=== PATIENT | male | born 1975 | race Caucasian/White ===

== ENCOUNTER 2023-03-21 21:18 | Emergency (ER) | payer BC ==
--- NOTE | 2023-03-21 21:46 | ERPHSYRPT ---
- History of Present Illness Time Seen by Provider: 03/21/23 21:45 Source: patient Exam Limitations: no limitations Physician History: This is an obese 47-year-old white male who complains of right ankle pain outer aspect for approximately 1 week. The last 2 days it is getting worse. He did not suffer any acute injury to the area. Method of Injury: unknown Occurred: last week Quality: aching Severity of Pain-Max: mild (To moderate) Severity of Pain-Current: mild (To moderate) Lower Extremities Pain: ankle: right (Outer aspect) Modifying Factors: Improves With: movement Associated Symptoms: none Allergies/Adverse Reactions: morphine Allergy (Verified 03/21/23 21:45) Home Medications: Bupropion HCl Xl 150 mg [Wellbutrin XL 150 MG] 300 mg PO DAILY 03/21/23 [History] Semaglutide [Ozempic] 2 mg SQ WEEKLY 03/21/23 [History] Sertraline HCl 200 mg PO DAILY 03/21/23 [History] Travel Risk - International Travel Have you traveled outside of the country in past 3 weeks: No - Coronavirus Screening Are you exhibiting any of the following symptoms?: No Close contact with a COVID-19 positive Pt in past 14-21 Days: No - Review of Systems Constitutional: No Symptoms Eyes: No Symptoms Ears, Nose, & Throat: No Symptoms Respiratory: No Symptoms Cardiac: No Symptoms Abdominal/Gastrointestinal: No Symptoms Genitourinary Symptoms: No Symptoms Musculoskeletal: Joint Pain (Right ankle) Skin: No Symptoms Neurological: No Symptoms Psychological: No Symptoms Endocrine: No Symptoms Hematologic/Lymphatic: No Symptoms Immunological/Allergic: No Symptoms All Other Systems: Reviewed and Negative - Past Medical History Pertinent Past Medical History: Yes - Past Surgical History Past Surgical History: Yes - Nursing Vital Signs Nursing Vital Signs: Initial Vital Signs Temperature 98.4 F 03/21/23 21:50 Pulse Rate 100 H 03/21/23 21:50 Respiratory Rate 18 03/21/23 21:50 Blood Pressure 135/79 03/21/23 21:50 O2 Sat by Pulse Oximetry 94 L 03/21/23 21:50 Pain Scale Pain Intensity 7 - Physical Exam General Appearance: no apparent distress, alert, anxiety Eyes, Ears, Nose, Throat Exam: normal ENT inspection, moist mucous membranes Neck Exam: normal inspection, non-tender, supple, full range of motion Cardiovascular/Respiratory Exam: chest non-tender, no respiratory distress Gastrointestinal/Abdominal Exam: non-tender Back Exam: normal inspection, normal range of motion, No CVA tenderness, No vertebral tenderness Hips Exam: bilateral: non-tender, normal inspection, normal range of motion, no evidence of injury Legs Exam: bilateral leg: non-tender, normal inspection, normal range of motion, no evidence of injury Knees Exam: bilateral knee: non-tender, normal inspection, normal range of motion, no evidence of injury Ankle Exam: right ankle: bone tenderness (Lateral aspect), soft tissue tenderness (Lateral aspect), left ankle: non-tender, bilateral ankle: normal inspection, normal range of motion, no evidence of injury Foot Exam: bilateral foot: non-tender, normal inspection, normal range of motion, no evidence of injury Neuro/Tendon Exam: normal sensation, normal motor functions, normal tendon functions, responds to pain, no evidence tendon injury Mental Status Exam: alert, oriented x 3, cooperative Skin Exam: normal color, warm, dry SpO2 Interpretation: normal O2 Delivery: Room Air - Course Nursing assessment & vital signs reviewed: Yes Ordered Tests: Active Orders 24 hr Category Date Time Status Reji Bandage Application -[facility] STAT Care 03/21/23 22:34 Active ANKLE (3 VIEWS) Stat Exams 03/21/23 21:57 Taken Medication Summary Discontinued Medications Generic Name Dose Route Start Last Admin Trade Name Freq PRN Reason Stop Dose Admin Orphenadrine Citrate 100 mg 03/21/23 22:35 Orphenadrine Citrate 100 Mg Er Tab PO 03/21/23 22:36 STAT ONE Prednisone 20 mg 03/21/23 22:35 Prednisone 20 Mg Tablet PO 03/21/23 22:36 STAT ONE - Progress Progress: pain not gone completely, re-examined Progress Note: 03/21/23 22:24 I reviewed and interpreted the x-ray of the right ankle. There are chronic changes noted but no evidence of any acute fracture or dislocation. This patient's issue is 1 of low complexity. The level of medical complexity and the work-up performed is based on review of the patient's past medical history, review of the patient's medical history, review of the patient's medication list, review of the patient's drug allergy list, history of present illness and physical findings on examination. Patient's work-up includes x-ray of the right ankle. Patient will use ice pack to the area 3 times a day for the next [address] an Reji wrap on him. He can use Tylenol and ibuprofen for pain control. He can follow-up with outpatient [facility] orthopedic clinic for persistent symptoms. Medical Desision Making - Diagnostic Testing Radiological Interpretation: Interpreted by me - Risk of complications The pt has a mod risk of morbidity or mortality based on: Need for prescription drug management - Departure Departure Disposition: Home Clinical Impression: Right ankle pain Condition: Stable Critical Care Time: No Referrals: ADIN ORLANDO MD [Primary Care Provider] - Follow up/PCP as directed Additional Instructions: Weightbearing as tolerated. Take your medication as prescribed. Call your primary care provider tomorrow, 03/22/2023 or follow-up with [facility] orthopedic clinic in the next 2 to 3 days if symptoms have not significantly improved. The orthopedic clinic is a walk-in clinic and you do not need to have an appointment. It is open 8 AM to 10 AM Wednesday through Wednesday. Ice pack to area 3 times a day for the next 48 hours Prescriptions: Prednisone 10 mg [Deltasone 10 mg] 10 mg PO TID #12 tablet Orphenadrine Citrate 100 mg [Norflex 100 MG Tablet] 100 mg PO BID #10 tab
[2023-03-21] MEDS ORDERED: Norflex 100 MG Tablet PO ONE ×2 (22:35→22:37)
[2023-03-21] MEDS ORDERED: DELTASONE 20 MG PO ONE (22:35)
[2023-03-21] MEDS ORDERED: DELTASONE 20 MG ONE (22:38)
[2023-03-21 22:43] VITALS: BP 126/84; PULSE 96; O2SAT 93
--- NOTE | 2023-03-22 08:36 | XRAY ---
Indication: Pain. Comparison: None 3 view right ankle demonstrates well circumscribed medial malleolus tip heterotopic ossification, small spurring distal tibia anteriorly, and tiny posterior/plantar heel spurs. No other bony, articular, or soft tissue abnormalities.
== END 2023-03-21 22:50 | disposition home or self-care (01) ==
LOC: ED 21:18
DX: M25.571 Pain in right ankle and joints of right foot (principal); Z79.52 Long term (current) use of systemic steroids; Z79.85 Long-term (current) use of injectable non-insulin antidiabetic drugs; Z79.899 Other long term (current) drug therapy
CPT/HCPCS: 73610; 99283; A9270-GY

== ENCOUNTER 2024-07-27 18:29 | Emergency (ER) | payer BC ==
--- NOTE | 2024-07-27 18:43 | ERPHSYRPT ---
- History of Present Illness Time Seen by Provider: 07/27/24 18:42 Source: patient, family Exam Limitations: no limitations Physician History: This is an obese 48-year-old white male patient who has known history of hypertension and insulin-dependent diabetes and presents to the emergency department by private vehicle escorted by his spouse. Patient has had intermittent episodes of left flank and left lower back pain over the last several weeks as well as associated intermittent diarrhea. Patient has never had a colonoscopy but several months ago he did have a Cologuard test done which was negative per patient's spouse report. Patient does not have chest pain and he does not have shortness of breath. Patient does not have nausea. He has not vomited. He had worsening pain in the last couple days and especially this morning. However the pain in his left lower flank/lower back tends to stay without radiation and that location. He describes the pain as an achiness and intermittent sharp pains. Timing/Duration: week(s) (Several weeks intermittently), intermittent, worse (Symptoms worsen last 2 days) Quality: sharp, aching Back Pain Location: lumbar spine Severity of Pain-Max: mild Severity of Pain-Current: mild Modifying Factors: Improves With: movement Associated Symptoms: lower back pain, muscle spasms, No urinary incontinence, No loss of bowel control, No vomiting, No sensory/motor loss Previous symptoms: same symptoms as today, no recent treatment Allergies/Adverse Reactions: morphine Allergy (Verified 03/21/23 21:45) Home Medications: Semaglutide [Ozempic] 2 mg SQ WEEKLY 03/21/23 [History] Sertraline HCl 200 mg PO DAILY 03/21/23 [History] Hx Tetanus, Diphtheria Vaccination/Date Given: Yes Hx Influenza Vaccination/Date Given: No Hx Pneumococcal Vaccination/Date Given: No Travel Risk - International Travel Have you traveled outside of the country in past 3 weeks: No - Emerging Infectious Disease Are you exhibiting symptoms associated with any current EIDs: No - Review of Systems Eyes: No Symptoms Ears, Nose, & Throat: No Symptoms Respiratory: No Symptoms Cardiac: No Symptoms Abdominal/Gastrointestinal: Diarrhea Genitourinary Symptoms: Flank Pain (Left) Musculoskeletal: No Symptoms Skin: No Symptoms Neurological: No Symptoms Psychological: No Symptoms Endocrine: No Symptoms Hematologic/Lymphatic: No Symptoms Immunological/Allergic: No Symptoms All Other Systems: Reviewed and Negative - Past Medical History Pertinent Past Medical History: Yes Neurological History: No Pertinent History ENT History: No Pertinent History Cardiac History: Hypertension Endocrine Medical History: Diabetes Type II - Past Surgical History Past Surgical History: Yes Neuro Surgical History: No Pertinent History Cardiac: Cardiac Catheterization Respiratory: No Pertinent History Gastrointestinal: Hernia Repair Genitourinary: No Pertinent History Musculoskeletal: No Pertinent History Male Surgical History: No Pertinent History Other Surgical History: nodule removed - Social History Smoking Status: Never smoker Exposure to second hand smoke: No Drug Use: none Patient Lives Alone: No - Nursing Vital Signs Nursing Vital Signs: Initial Vital Signs Temperature 98.1 F 07/27/24 18:47 Pulse Rate 83 07/27/24 18:47 Respiratory Rate 18 07/27/24 18:47 Blood Pressure 127/71 07/27/24 18:47 O2 Sat by Pulse Oximetry 95 07/27/24 18:47 Pain Scale Pain Intensity 6 - Physical Exam General Appearance: no apparent distress, alert, anxiety, obese Eye Exam: PERRL/EOMI, eyes nml inspection Ears, Nose, Throat Exam: normal ENT inspection, moist mucous membranes Neck Exam: normal inspection, non-tender, supple, full range of motion Respiratory Exam: normal breath sounds, lungs clear, airway intact, No chest tenderness, No respiratory distress Cardiovascular Exam: regular rate/rhythm, normal heart sounds, normal peripheral pulses Gastrointestinal Exam: soft, normal bowel sounds, No tenderness Rectal Exam: not done Back Exam: normal inspection, normal range of motion, CVA tenderness (Left side), No vertebral tenderness Extremity Exam: normal inspection, normal range of motion, pelvis stable Neurologic Exam: alert, oriented x 3, cooperative, licsw II-XII nml as tested, nml cerebellar function, nml station & gait, sensation nml Skin Exam: normal color, warm, dry Lymphatic Exam: adenopathy SpO2 Interpretation: normal O2 Delivery: Room Air - Course Nursing assessment & vital signs reviewed: Yes Ordered Tests: Active Orders 24 hr Category Date Time Status IV Insertion STAT Care 07/27/24 19:13 Active ABDOMEN AND PELVIS W/0 CONTRAS [CT] Stat Exams 07/27/24 19:55 Taken AMYLASE Stat Lab 07/27/24 19:50 Completed CBC W DIFF Stat Lab 07/27/24 19:50 Completed CMP Stat Lab 07/27/24 19:50 Completed CULTURE,URINE Stat Lab 07/27/24 19:38 Received LIPASE Stat Lab 07/27/24 19:50 Completed UA W/RFX UR CULTURE Stat Lab 07/27/24 19:38 Completed Medication Summary Discontinued Medications Generic Name Dose Route Start Last Admin Trade Name Rowena PRN Reason Stop Dose Admin Sodium Chloride 1,000 mls @ 999 mls/hr 07/27/24 19:13 07/27/24 20:00 Sodium Chloride 0.9% 1000 Ml IV 07/27/24 20:13 999 mls/hr .Q1H1M STA Administration Sodium Chloride Confirm 07/27/24 19:38 Sodium Chloride 0.9% 1000 Ml Administered 07/27/24 19:39 Dose 1,000 mls @ ud .ROUTE .STK-MED ONE Lab/Rad Data: Laboratory Result Diagrams 07/27/24 19:50 07/27/24 19:50 Laboratory Results 07/27/24 07/27/24 07/27/24 Range/Units 19:50 19:50 19:38 WBC 7.4 (4.23-9.07) x10^3/uL RBC 4.87 (4.63-6.08) x10^6/uL Hgb 14.0 (13.7-17.5) g/dL Hct 41.1 (40.1-51.0) % MCV 84.4 (79.0-92.2) fL MCH 28.7 (25.7-32.2) pg MCHC 34.1 (32.3-36.5) g/dL RDW 12.5 (11.6-14.4) % Plt Count 222 (163-337) x10^3/uL MPV 9.5 (9.4-12.4) fL Gran % 59.6 (34.0-67.9) % Immature Gran % (Auto) 0.3 (0.001-0.429) % Nucleat RBC Rel Count 0.0 (0.00-0.2) % Eos # (Auto) 0.20 (0.04-0.54) x10^3/uL Immature Gran # (Auto) 0.02 (0.001-0.031) x10^3u/L Absolute Lymphs (auto) 2.30 (1.32-3.57) x10^3/uL Absolute Monos (auto) 0.45 (0.30-0.82) x10^3/uL Absolute Nucleated RBC 0.00 (0.00-0.012) x10^3u/L Lymphocytes % 31.0 (21.8-53.1) % Monocytes % 6.1 (5.3-12.2) % Eosinophils % 2.7 (0.8-7.0) % Basophils % 0.3 (0.2-1.2) % Absolute Granulocytes 4.43 (1.78-5.38) x10^3/uL Basophils # 0.02 (0.01-0.08) x10^3/uL Sodium 138 (135-145) mmol/L Potassium 4.1 (3.5-5.1) mmol/L Chloride 105 (98-107) mmol/L Carbon Dioxide 25 (22-30) mmol/L Anion Gap 12.7 (5-15) MEQ/L BUN 14 (9-20) mg/dL Creatinine 0.93 (0.66-1.25) mg/dL Estimated GFR 102.6 ML/MIN Glucose 321 H (74-106) mg/dL Calcium 8.7 (8.4-10.2) mg/dL Total Bilirubin 0.50 (0.2-1.3) mg/dL AST 34 (17-59) U/L ALT 37 (0-50) U/L Alkaline Phosphatase 90 (38-126) U/L Serum Total Protein 7.5 (6.3-8.2) g/dL Albumin 4.0 (3.5-5.0) g/dL Amylase 83 (30-110) U/L Lipase 149 (23-300) U/L Urine Color Yellow (Yellow) Urine Appearance Clear (Clear) Urine pH 5.5 (4.6-8.0) Ur Specific [place] >=1.030 A (1.005-1.030) Urine Protein 100 A (Negative) Urine Glucose (UA) >=1000 A (Negative) mg/dL Urine Ketones Negative (Negative) Urine Blood Negative (Negative) Urine Nitrite Negative (Negative) Urine Bilirubin Negative (Negative) Urine Urobilinogen 1.0 A (0.2) mg/dL Ur Leukocyte Esterase Negative (Negative) U Hyaline Cast (Auto) NONE SEEN (0-2) /LPF Urine Microscopic RBC 0-2 (0-5) /HPF Urine Microscopic WBC 11-20 A (0-5) /HPF Ur Epithelial Cells None Seen (None Seen) /HPF Urine Bacteria None Seen (None Seen) /HPF Urine Culture Reflexed YES (NO) - Progress Progress: improved, pain not gone completely Progress Note: 07/27/24 19:32 My medical decision making and the assignment of moderate complexity to this patient's medical issue today is based on review of the patient's past medical history, review of the patient's medication list, review of patient drug allergy list, history present illness and physical findings on examination. The workup in this patient includes placement of intravenous line, infusion of normal saline solution, CBC, CMP, amylase, lipase, urinalysis, stool culture, C. difficile toxin and stool, CT scan of the abdomen pelvis without contrast. Patient does not want any narcotics or other type of pain medicine at this time. Differential diagnosis includes but is not limited to pancreatitis, colitis, diverticulitis, 07/27/24 20:59 I interpreted the patient's laboratory data results. The patient has hyperglycemia. Patient's anion gap, CO2 are within normal limits. There are no ketones in the patient's urine. Patient's electrolytes are within normal limits. CT scan of the abdomen pelvis without contrast shows fatty hepatomegaly, mild colonic diarrhea, moderate broad-based disc bulge. Counseled pt/family regarding: lab results, diagnosis, need for follow-up, rad results Medical Desision Making - Independent Historian Additional History obtained from: Spouse - Diagnostic Testing Diagnostic test were ordered, analyzed, and reviewed by me: Yes Radiological Interpretation: Reviewed by me, Teleradiologist Report - Risk of complications The pt has a mod risk of morbidity or mortality based on: Need for prescription drug management - Departure Departure Disposition: Home Clinical Impression: Hyperglycemia, Diarrhea Condition: Stable Critical Care Time: No Referrals: [facility] [employer] [Primary Care Provider] - Follow up/PCP as directed Additional Instructions: Drink plenty of clear liquids. Avoid fatty greasy spicy foods. Monitor your blood sugar closely. Take your antibiotics as prescribed. Call your primary prescribing provider tomorrow morning, 07/28/2024, to make arrangements for follow-up appointment for further evaluation and management and to be seen in the next 3 to 5 days. Prescriptions: Metronidazole 500 mg [Flagyl 500 MG] 500 mg PO TID #21 tablet
[2024-07-27 18:52] VITALS: TEMP 98.1
[2024-07-27] MEDS ORDERED: Sodium Chloride 0.9% 1000 ML 1,000 ML ONE (19:38)
[2024-07-27] MEDS: Sodium Chloride 0.9% 1000 ML 1,000 ML IV STA (20:00)
[2024-07-27 20:07] LABS: Absolute Neutrophil Ct (ANC) 4.43 x10^3/uL (1.78-5.38); BASOPHIL % 0.3 % (0.2-1.2); Basophil (Absolute #) 0.02 x10^3/uL (0.01-0.08); Eosinophil % 2.7 % (0.8-7.0); Hematocrit 41.1 % (40.1-51.0); IMMATURE GRAN # 0.02 x10^3u/L (0.001-0.031); IMMATURE GRAN % 0.3 % (0.001-0.429); Mean Cell Volume 84.4 fL (79.0-92.2); Mean Corpuscular Hemoglobin 28.7 pg (25.7-32.2); Mean Corpuscular Hgb Concent. 34.1 g/dL (32.3-36.5); Mean Platelet Volume 9.5 fL (9.4-12.4); Monocyte (Absolute #) 0.45 x10^3/uL (0.30-0.82); Monocytes % 6.1 % (5.3-12.2); Neutrophil % 59.6 % (34.0-67.9); Platelet Count 222 x10^3/uL (163-337); Red Blood Count 4.87 x10^6/uL (4.63-6.08); Red Cell Distribution Width 12.5 % (11.6-14.4); White Blood Count 7.4 x10^3/uL (4.23-9.07)
[2024-07-27 20:17] LABS: Appearance Clear (Clear); Bacteria None Seen /HPF (None Seen); Bilirubin Negative (Negative); Blood Negative (Negative); Epithelial Cells None Seen /HPF (None Seen); Glucose, Urine >=1000 mg/dL (Negative); Hyaline Casts NONE SEEN /LPF (0-2); Ketones Negative (Negative); Leukocyte Esterase Negative (Negative); Nitrite Negative (Negative); Ph 5.5 (4.6-8.0); Protein,Urine Dip 100 (Negative); RBC 0-2 /HPF (0-5); Specific Gravity >=1.030 (1.005-1.030)
[2024-07-27 20:22] LABS: ANION GAP 12.7 MEQ/L (5-15); BILIRUBIN,TOTAL 0.5 mg/dL (0.2-1.3); Calcium 8.7 mg/dL (8.4-10.2); Creatinine 1 0.93 mg/dL (0.66-1.25); EST GLOMERULAR FILTRATION RATE 102.6 ML/MIN; Potassium 4.1 mmol/L (3.5-5.1); Total Protein 7.5 g/dL (6.3-8.2)
[2024-07-27 21:03] LABS: 027 TOX PROD PRESUMPTIVE NEGATIVE (NEGATIVE); TOXIGENIC C. DIFF ORG NEGATIVE (NEGATIVE)
[2024-07-27] MEDS ORDERED: Flagyl 500 MG ONE (21:08)
[2024-07-27] MEDS: Flagyl 500 MG PO ONE (21:09)
[2024-07-27 21:11] VITALS: RESP 18
[2024-07-27 21:31] VITALS: BP 128/82; PULSE 82; O2SAT 94
--- NOTE | 2024-07-28 09:02 | XRAY ---
Indication: Left flank/left lower back pain. Multiple contiguous axial images obtained through the abdomen and pelvis without contrast. Comparison: None Lung bases clear. Heart not enlarged. Stomach distended with food. Gallbladder contracted without gallstones. Noncontrasted stomach and bowel loops appear nonobstructed with normal appendix. Mild scattered colonic diarrhea. 23 cm fatty hepatomegaly. No free fluid/air. Remaining liver, gallbladder, pancreas, spleen, adrenal glands, kidneys, ureters, bladder, and aorta are unremarkable for noncontrast exam. Osseous structures intact with mild degenerative changes throughout the thoracolumbar spine. There is moderate broad-based L1-L2 disc osteophyte complex. Intact ventral mesh graft. Impression: 1. Multilevel thoracal lumbar degenerative spondylosis including L1-L2 broad-based disc osteophyte complex. Outpatient MRI may yield further information if clinically warranted. 2. Colonic diarrhea. 3. Incidental fatty hepatomegaly.
== END 2024-07-27 21:38 | disposition home or self-care (01) ==
LOC: ED 18:29
DX: E11.65 Type 2 diabetes mellitus with hyperglycemia (principal); R19.7 Diarrhea, unspecified; R10.9 Unspecified abdominal pain; M54.50 Low back pain, unspecified; I10 Essential (primary) hypertension; Z79.85 Long-term (current) use of injectable non-insulin antidiabetic drugs; Z79.899 Other long term (current) drug therapy
CPT/HCPCS: 36000; 36415; 74176; 80053; 81001; 82150; 83690; 85025; 87045; 87046; 87086; 87427; 87493; 99284; A9270-GY